=== PATIENT | male | born 1960 | race African-American/Black ===

== ENCOUNTER 2019-08-01 08:48 | Inpatient (IN) ==
--- NOTE | 2019-08-01 09:07 | EKG Report ---
Test Performed on : 08/01/2019 09:04:27 AM Test Reason : Stroke like sx Blood Pressure : / mmHG Vent. Rate : 069 BPM Atrial Rate : 069 BPM P-R Int : 142 ms QRS Dur : 082 ms QT Int : 384 ms P-R-T Axes : 036 024 057 degrees QTc Int : 411 ms Normal sinus rhythm. Nonspecific ST and T wave abnormality Abnormal ECG No previous ECGs available Unconfirmed Result
--- NOTE | 2019-08-01 09:17 | PROVIDER DOCUMENTATION ---
HPI-Neurological Disorder - General Chief Complaint: Stroke-Like Symptoms Stated Complaint: DIZZINESS,HEADACHE SLURRED SPEECH Time Seen by Provider: 08/01/19 09:02 Source: patient, family () Allergies/Adverse Reactions: Patient Allergies Allergy/AdvReac Type Severity Reaction Status Date / Time No Known Allergies Allergy Verified 08/01/19 09:46 Home Medications: Home Medication List Medication Instructions Recorded Confirmed Last Taken Type Insulin Humulin 70/30 [Humulin 30 units IM BID 08/01/19 08/01/19 Unknown History 70/30] Lisinopril/Hydrochlorothiazide 20 mg PO DAILY 08/01/19 08/01/19 Unknown History [Lisinopril-Hctz 20-12.5 mg Tab] Metformin HCl 1,000 mg PO BID 08/01/19 08/01/19 Unknown History Rosuvastatin Calcium [Crestor] 40 mg PO DAILY 08/01/19 08/01/19 Unknown History - History of Present Illness-Neuro Nature of Presenting Problem: Patient is a 59yo M who presents, accompanied by , with complaints of R sided weakness, LUE/BLE weakness, facial drooping, and slurred speech. reports patient was last seen normal approximately 12 hours ago. States yesterday afternoon, patient reported having a headache and he went to bed early. Reports some slurred speech last night, which worsened this morning. Denies personal/family hx of CVA, fever, flu-like sx, CP, or SOB. Reports hx of NIDDM, HTN, and HLD. Non-toxic in appearance. Headache Location: reports: other (global headache yesterday afternoon) Severity: reports: moderate Onset/Duration: reports: last night (2099) Timing: reports: still present Context: reports: impaired speech, facial droop Approximate time patient was last seen normal?: 21:00 Character of Altered Mental Status: reports: N/A Any recent trauma/injury?: reports: none Character of Deficits: reports: new weakness, impaired speech, decreased ability to walk New weakness or altered sensation location:: reports: LUE, LLE, right facial, general (diffuse) Cognitive Baseline: alert, oriented x3 Gait Baseline: uses a cane Associated Symptoms: reports: headache (yesterday), slurred speech, trouble walking, weakness. denies: dizziness, fever/chills, nausea, vomiting, vision changes Similar Symptoms Previously?: No Recently seen or treated by another doctor?: No Review of Systems - Adult - REVIEW OF SYSTEMS - ADULT Constitutional: denies: chills, fever Eyes: denies: decreased vision, blurred vision Ears, Nose, Mouth & Throat: reports: no symptoms reported Cardiovascular: denies: chest pain, palpitations Respiratory: denies: cough, shortness of breath Gastrointestinal: denies: nausea, vomiting Genitourinary: reports: no symptoms reported Musculoskeletal: reports: no symptoms reported Integumentary: reports: no symptoms reported Neurological: reports: see HPI, headache/migraines, numbness, slurred speech, other (dysarthria) Psychiatric: reports: no symptoms reported Endocrine: reports: no symptoms reported Past History - Adult - PAST MEDICAL HISTORY-ADULT Review of Records: reports: Nursing Assessment Review, Medications Reviewed Cardiovascular: reports: HTN, hyperlipidemia Endocrine/Immune: reports: Diabetes Diabetes controlled by:: PO Meds - IMMUNIZATION STATUS Childhood Immunizations: See Nurse Assessment Flu Vaccine: See Nurse Assessment Physical Exam- Neurological - Physical Exam-Neuro Initial Vital Signs Reviewed: Yes General Appearance: alert, mild distress. negative: lethargic, slow to respond, obtunded Eye Exam: bilateral eye: normal inspection, PERRL, EOMI HENMT: normocephalic/atraumatic, moist mucous membranes. negative: angioedema Head Injury: no evidence of injury Neck: non-tender, full range of motion, supple, normal inspection. negative: limited range of motion Respiratory: chest non-tender, lungs clear, normal breath sounds, no pleuratic chest pain, no respiratory distress, no accessory muscle use. negative: crackles, rhonchi, stridor, retractions Cardiovascular: regular rate, rhythm, no gallop Abdominal Exam: normal bowel sounds, non tender, soft. negative: tenderness Extremity: normal inspection, no pedal edema, other (decreased strength/movement LUE/BLE). 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 negative: gaze palsy Motor/Sensory: no sensory deficit, pronator drift (R), weak motor strength LUE, weak motor strength RLE, weak motor strength LLE Neurologic: facial droop, focal weakness, motor weakness, other (dysarthria) Integumentary: normal color, warm/dry. negative: cyanosis, jaundice, pallor Psych/Mental Status: normal mood/affect, normal thought content, normal thought process, oriented x 3 - Glascow Coma Scale Best Eye Response: (4) open spontaneously Best Verbal Response: (5) oriented Best Motor Response: (6) obeys commands Total Glascow Score: 15 Progress - PLAN OF CARE/RESULTS Progress/Plan/Lab Results: Vital Signs - 8 hr 08/01/19 08:54 Temperature 98.0 F Pulse Rate 65 Respiratory Rate 16 Blood Pressure 146/80 O2 Sat by Pulse Oximetry 99 Laboratory Results - last 24 hr 08/01/19 08/01/19 08/01/19 09:18 09:20 09:20 WBC RBC Hgb Hct MCV MCH MCHC RDW Std Deviation Plt Count MPV Neut % (Auto) Lymph % (Auto) Weber % (Auto) Eos % (Auto) Baso % (Auto) Neut # (Auto) Lymph # (Auto) Weber # (Auto) Eos # (Auto) Baso # (Auto) PT INR PTT (Actin FS) Sodium 138 Potassium 4.6 Chloride 99 Carbon Dioxide 25 Anion Gap 14 BUN 9 Creatinine 1.3 H Estimated GFR/1.73 m2 > 60 BUN/Creatinine Ratio 7 Glucose 240 H POC Glucose 227 H Estimat Average Glucose Hemoglobin A1c Calculated Osmolality 282 Calcium 9.7 Total Bilirubin 0.64 AST 12 ALT 15 Alkaline Phosphatase 87 Creatine Kinase Troponin T High Sens Total Protein 7.1 Albumin 4.6 Globulin 2.5 Albumin/Globulin Ratio 1.8 Triglycerides Cholesterol LDL Cholesterol Direct VLDL Cholesterol, Calc HDL Cholesterol Coronary Risk Interp Plasma Lactate 1.6 TSH Free T4 Plasma/Serum Ethyl Alc 08/01/19 08/01/19 08/01/19 09:20 09:20 09:20 WBC 4.95 RBC 4.98 Hgb 15.2 Hct 43.5 MCV 87.3 MCH 30.5 MCHC 34.9 RDW Std Deviation 13.9 Plt Count 137 MPV 11.5 H Neut % (Auto) 51.6 Lymph % (Auto) 34.3 Weber % (Auto) 13.7 H Eos % (Auto) 0.2 Baso % (Auto) 0.2 Neut # (Auto) 2.55 Lymph # (Auto) 1.70 Weber # (Auto) 0.68 H Eos # (Auto) 0.01 Baso # (Auto) 0.01 PT INR PTT (Actin FS) Sodium Potassium Chloride Carbon Dioxide Anion Gap BUN Creatinine Estimated GFR/1.73 m2 BUN/Creatinine Ratio Glucose POC Glucose Estimat Average Glucose Hemoglobin A1c Calculated Osmolality Calcium Total Bilirubin AST ALT Alkaline Phosphatase Creatine Kinase Troponin T High Sens 15 Total Protein Albumin Globulin Albumin/Globulin Ratio Triglycerides Cholesterol LDL Cholesterol Direct VLDL Cholesterol, Calc HDL Cholesterol Coronary Risk Interp Plasma Lactate TSH Free T4 Plasma/Serum Ethyl Alc 08/01/19 08/01/19 08/01/19 09:20 09:20 09:20 WBC RBC Hgb Hct MCV MCH MCHC RDW Std Deviation Plt Count MPV Neut % (Auto) Lymph % (Auto) Weber % (Auto) Eos % (Auto) Baso % (Auto) Neut # (Auto) Lymph # (Auto) Weber # (Auto) Eos # (Auto) Baso # (Auto) PT 13.7 INR 1.03 PTT (Actin FS) 26.4 Sodium Potassium Chloride Carbon Dioxide Anion Gap BUN Creatinine Estimated GFR/1.73 m2 BUN/Creatinine Ratio Glucose POC Glucose Estimat Average Glucose 197 Hemoglobin A1c 8.5 H Calculated Osmolality Calcium Total Bilirubin AST ALT Alkaline Phosphatase Creatine Kinase 95 Troponin T High Sens Total Protein Albumin Globulin Albumin/Globulin Ratio Triglycerides Cholesterol LDL Cholesterol Direct VLDL Cholesterol, Calc HDL Cholesterol Coronary Risk Interp Plasma Lactate TSH Free T4 Plasma/Serum Ethyl Alc 08/01/19 08/01/19 09:20 09:20 WBC RBC Hgb Hct MCV MCH MCHC RDW Std Deviation Plt Count MPV Neut % (Auto) Lymph % (Auto) Weber % (Auto) Eos % (Auto) Baso % (Auto) Neut # (Auto) Lymph # (Auto) Weber # (Auto) Eos # (Auto) Baso # (Auto) PT INR PTT (Actin FS) Sodium Potassium Chloride Carbon Dioxide Anion Gap BUN Creatinine Estimated GFR/1.73 m2 BUN/Creatinine Ratio Glucose POC Glucose Estimat Average Glucose Hemoglobin A1c Calculated Osmolality Calcium Total Bilirubin AST ALT Alkaline Phosphatase Creatine Kinase Troponin T High Sens Total Protein Albumin Globulin Albumin/Globulin Ratio Triglycerides 113 Cholesterol 209 H LDL Cholesterol Direct 151 VLDL Cholesterol, Calc 23 HDL Cholesterol 49 Coronary Risk Interp 4.00 Plasma Lactate TSH 1.40 Free T4 1.14 Plasma/Serum Ethyl Alc Orders Category Date Time Status Cardiac Monitoring DIRECTED Care 08/01/19 09:03 Active Complete NIH Stroke scale [QM] ORDERED Care 08/01/19 09:03 Active FSBS/Accucheck Result AC + HS Care 08/01/19 10:28 Active Finger Stick Blood Sugar (ED) DIRECTED Care 08/01/19 09:03 Active Neurological Check ORDERED Care 08/01/19 10:46 Active Nursing- MD Consult Request ROUTINE Care 08/01/19 10:25 Active Oxygen Therapy- ED Nursing DIRECTED Care 08/01/19 09:03 Active Saline Loc NOW Care 08/01/19 09:03 Active MD [Physician/Provider Consults] Routine Cons 08/01/19 10:24 Ordered CHEST-PORTABLE [RAD] Stat Exams 08/01/19 09:[address] HEAD W/O CONTRAST [CT] Stat Exams 08/01/19 09:04 Completed MRA BRAIN W/O CONTRAST [MRI] Stat Exams 08/01/19 10:33 Taken MRI BRAIN W/WO CONTRAST [MRI] Stat Exams 08/01/19 10:33 Ordered A1C HGB W EST AVG GLUCOSE [CHEM] Stat Lab 08/01/19 09:20 Completed ALCOHOL BLOOD Stat Lab 08/01/19 09:20 Completed CBC WITH ELECTRONIC DIFF [HEME] Stat Lab 08/01/19 09:20 Completed CK PROFILE [SP CHEM] Stat Lab 08/01/19 09:20 Completed COMPREHENSIVE METABOLIC PANEL [CHEM] Stat Lab 08/01/19 09:20 Completed FREE T4 Stat Lab 08/01/19 09:20 Completed LACTATE, PLASMA [CHEM] Stat Lab 08/01/19 09:20 Completed LIPID PROFILE W/DIR LDL [LIPIDS] Stat Lab 08/01/19 09:20 Completed PROTIME WITH INR [COAG] Stat Lab 08/01/19 09:20 Completed PTT [COAG] Stat Lab 08/01/19 09:20 Completed TROPONIN T HIGH SENSITIVITY Stat Lab 08/01/19 09:20 Completed TSH Stat Lab 08/01/19 09:20 Completed UA NIMS W/REFLEX CULT [URINALYSIS] Stat Lab 08/01/19 09:03 Uncollected URINE DRUG SCREEN Stat Lab 08/01/19 09:03 Uncollected 0.9% Sodium Chloride Inj [Ns] 1,000 ml Med 08/01/19 09:53 Discontinued IV 999 mls/hr 0.9% Sodium Chloride Inj [Ns] 1,000 ml Med 08/01/19 09:57 Discontinued IV 999 mls/hr 0.9% Sodium Chloride Inj [Ns] 1,000 ml Med 08/01/19 09:57 Discontinued IV 999 mls/hr Aspirin Med 08/01/19 09:55 Discontinued 325 mg PO NOW ONE Insulin Human Regular [Humulin R] Med 08/01/19 11:00 Active See Protocol SUBQ 0700,1100,1600,2100 Altered Mental Status Stat Oth 08/01/19 09:03 Ordered Carotid Ultrasound Stat Ther 08/01/19 10:25 Completed EKG [EKG] Stat Ther 08/01/19 09:03 Draft Echo Spec/Color Doppler Stat Ther 08/01/19 10:25 Completed Swallow Evaluation [OM.SPT] Routine Ther 08/01/19 10:27 Active 1017: Lab results, imaging results, plan of care, and need for admission discussed with patient and who agree with and verbalize understanding. 1025: Hospitalist TABITHA requested that I consult with Neurology to see if patient would be candidate for thrombectomy. Transfer Center paged. Result Diagrams: 08/01/19 09:20 08/01/19 09:20 - EKG 1 Time of EKG reading by physician:: 09:07 EKG Read and Signed by:: Wu Gan EKG Interpretation (*Must complete 3 of following elements*): Abnormal Rate: 69 Rhythm: NSR [place]: normal QRS: normal ST Wave: non-specific ST changes Prior EKG Comparison: no prior EKG - CT/MRI 1 CT Study: Head Impression: See EMR Report ([facility] - [address] [place] [address] [address], [place] [address] [facility] - [address] [place] [address] Department of Imaging Patient: SERENE GERMAN Date: 08/01/19MR#: [id number] : 1960ADM Status: REG ERAt#: [id number] Age/Sex: 59/MRoom/Bed: Loc: ED Ordering Physician: Vernell Tinoco Family Physician: None,PCP Reason for Procedure: Stroke like sx Signed EXAM: CT HEAD W/O CONTRAST INDICATION: Stroke like sx TECHNIQUE: This exam was performed using automated exposure control, adjustment of mA or kV according to patient size, and/or use of iterative reconstruction technique. COMPARISON: None. FINDINGS: There is patchy low attenuation in the left parietal lobe with disruption of the monet-white interface consistent with acute infarct. This is in the left MCA distribution. There are a couple of chronic appearing lacunar infarcts involving the right basal ganglion and right periventricular white matter. No other acute infarcts are identified as imaged with CT. There is no discrete intracranial mass, significant mass effect, or intracranial hemorrhage. The surrounding soft tissues and bony structures are essentially unremarkable. IMPRESSION: Acute left MCA distribution infarct as detailed above. The findings were discussed with Wu Gan MD at 08/01/2019 9:54 AM and was acknowledged. Electronically signed by Tonio Bazan 08/01/2019 9:55 AM 08/01/19 09 Interpreting Physician: Tonio Bazan MD Dictated Date/Time: 08/01/19 09 cc: Vernell Tinoco; None,PCP) - CONSULTS/PCP/HOSPITALIST Notification #1 *Consult/PCP/Hospitalist*: Dr. Tonio Bazan, Radiologist Time Discussed: 09:55 Reason/Comments: Acute L MCA infarct #2 Consult: Tiffanie Osullivan Time Discussed: 10:21 Reason/Comments: Acute CVA Consult Disposition: Will see in ED, Admit #3 Consult: CITLALLI Ann Transfer Center Time Discussed: 10:38 (I spoke with Justin at 1129, no intervention or transfer warranted at this time, as there is already infarct on CT) Reason/Comments: L MCA CVA Consult Disposition: other Departure - Departure Date of Disposition Decision: 08/01/19 Time of Disposition Decision: 10:17 DIAGNOSIS: Cerebral infarction involving left middle cerebral artery Hyperglycemia due to type 2 diabetes mellitus Qualifiers: Diabetes mellitus assisted insulin use: unspecified learning solutions specialist insulin use status Qualified Code(s): E11.65 - Type 2 diabetes mellitus with hyperglycemia Disposition: ADMITTED INPATIENT 09 Certified Medical Emergency: Emergent Condition: Stable Referrals and Follow-Ups: ASHLEY JOVEL CRNP [NON-STAFF PROVIDER] - - Critical Care Note This patient required my direct & personal management of CC.: No Attestation - Physician/ RAFY Attestation Patient care was provided by Advanced Practice Provider:: Yes Advanced Practice Provider:: Vernell Tinoco Advanced Practice Provider documentation review:: The Mid-level provider documentation, treatment plan and medical decision making was reviewed by the physician who agrees with all treatment and medical decision making by the MLP. The physician spent face to face time with patient:: Yes (Malik) Advanced Practice Provider documentation review:: Supervising physician onsite and consulted in the evaluation and care of this patient. The physician did have a face to face encounter with the patient. - NIH Stroke Scale NIH Type: Initial Evaluation Level of Consciousness: 0-Alert LOC Questions (ask month and age): 0-Answers Both Correctly LOC Commands (ask to open & close eyes;make a fist, let go): 0-Obeys Both Correctly Best Gaze (horizontal eye movement): 0-Normal Visual (use finger movement, counting or visual threat): 0-No Visual Loss Facial Palsy (show teeth or raise eyebrows & close eyes tght: 3-Complete Paralysis (R) Motor Function-left arm: 1-Drift Motor Function-right arm: 1-Drift Motor Function-left le-No Effort Against [place] Motor Function-right le-Some Effort Against [place] Limb Ataxia([id number], or heel to agudelo): 2-Present in two limbs Sensory(pin prick to face,arms,trunk,legs-compare side/side): 1-Mild to Moderate Decrease in Sensation Best Language(name item/read sentence.Ex-Down to Earth): 2-Severe Aphasia Dysarthria(Pt read words or say words Ex.Mama,Tip-Top,Thanks: 1-Mild-Mod Slurring Words Extinction and Inattention: 0-Normal NIH Total Score: 12 (14 by my testing) Modified [place] Score Criteria: 4-moderately severe disability Stroke tPA Guidelines - Inclusion Criteria for IV tPA 18 years old or older: Yes Ischemic stroke with measurable deficit: Yes Onset <3 hours ago *OR* 3-4.5 hours ago: No - Exclusion Criteria for IV tPA Evidence of intracranial hemorrhage on CT: No Presentation suggest SAH: No CT reveals defined area of hypodensity: Yes Evidence of AVM, neoplasm, aneurysm: No Seizure at stroke onset: No Active internal bleeding or acute trauma: No Platelet Count Less Than 100,000: No Heparin Within Last 48 HRS (PTT >Lab normal limits): No INR > 1.7 (warfarin use): No Use IIB/IIIA inhibitors within 24 hours: No Serious Head Trauma Within Last 3 Months: No Arterial Puncture Within Last 7 Days: No Lumbar Puncture Within Last 7 Days: No Repeated systolic Blood Pressure >185 or Diastolic >110: No - Additional Exclusion Criteria for IV tPA Currently on Coumadin: No Patient older than 80: No Baseline NIHSS score > 25: No - Relative Contraindications to IV tPA CT reveals extensive area of infarct (>1/3 MCA territory): Yes Minor or rapidly improving stroke symptoms: No Major Surgery or Serious Trauma In Previous 14 Days: No AMI within 3 months: No Gastrointestinal or Urinary Tract hemorrhage in Past 21 Days: No Post - AMI pericarditis: No Blood Glucose Less Than 50 mg/dl or Greater Than 400 mg/dl: No - Consultation tPA risks/benefits explained to:: family Candidate for:: NOT A CANDIDATE Reason not a candidate:: Too many exclusion criteria; symptom onset 12 hrs ago
[2019-08-01 09:49] LABS: BASO# 0.01 X1000 (0.0-0.2); BASO% 0.2 % (0.0-0.8); EOS# 0.01 X1000 (0.0-0.7); EOS% 0.2 % (0.0-10.0); HEMATOCRIT 43.5 % (42.0-52.0); HEMOGLOBIN 15.2 g/dL (14.0-18.0); LYMPH% 34.3 % (20.5-51.1); MCH 30.5 PG (27-31); MCHC 34.9 g/dL (33-37); MCV 87.3 FL (81-99); MONO# 0.68 X1000 (0.11-0.59); MONO% 13.7 % (1.7-9.3); MPV 11.5 FL (7.4-10.4); NEUT# 2.55 X1000 (1.4-6.5); NEUT% 51.6 % (42.2-75.2); PLT 137 X1000 (130-400); RBC 4.98 XMIL (4.7-6.1); RDW 13.9 % (11.5-14.5); WBC 4.95 X1000 (4.8-10.8)
[2019-08-01 09:52] LABS: INR 1.03; PROTIME 13.7 Seconds (11.0-16.0); PTT 26.4 Seconds (22.3-41.8)
[2019-08-01] MEDS ORDERED: NS 1,000 ML IV ONE ×3 (09:53→09:57)
[2019-08-01] MEDS ORDERED: ASPIRIN PO ONE (09:55)
--- NOTE | 2019-08-01 09:55 | Diag Imaging Result Doc PS360 ---
EXAM: CHEST-PORTABLE HISTORY: Stroke like sx TECHNIQUE: Single view COMPARISON: None. FINDINGS: The lungs are well expanded. The heart is not enlarged. The vessels are not distended. There are no infiltrates. No effusion identified. IMPRESSION: Negative exam. Electronically signed by Roly Dennison 08/01/2019 9:53 AM
--- NOTE | 2019-08-01 09:58 | Diag Imaging Result Doc PS360 ---
EXAM: CT HEAD W/O CONTRAST INDICATION: Stroke like sx TECHNIQUE: This exam was performed using automated exposure control, adjustment of mA or kV according to patient size, and/or use of iterative reconstruction technique. COMPARISON: None. FINDINGS: There is patchy low attenuation in the left parietal lobe with disruption of the monet-white interface consistent with acute infarct. This is in the left MCA distribution. There are a couple of chronic appearing lacunar infarcts involving the right basal ganglion and right periventricular white matter. No other acute infarcts are identified as imaged with CT. There is no discrete intracranial mass, significant mass effect, or intracranial hemorrhage. The surrounding soft tissues and bony structures are essentially unremarkable. IMPRESSION: Acute left MCA distribution infarct as detailed above. The findings were discussed with Wu Gan MD at 08/01/2019 9:54 AM and was acknowledged. Electronically signed by Tonio Bazan 08/01/2019 9:55 AM
[2019-08-01 10:04] LABS: AGAP 14; ALB/GLOB RATIO 1.8; ALBUMIN 4.6 g/dL (3.5-5.0); ALKALINE PHOSPHATASE 87 U/L (32-122); BUN 9 mg/dL (8-22); CALCIUM 9.7 mg/dL (8.8-10.2); CHLORIDE 99 mmol/L (98-107); COSMO 282; CREATININE 1.3 mg/dL (0.7-1.2); ESTIMATED GFR > 60; GLUCOSE 240 mg/dL (70-104); GOT 12 U/L (10-34); GPT 15 U/L (10-44); POTASSIUM 4.6 mmol/L (3.5-5.1); SODIUM 138 mmol/L (136-145); TCO2 25 mmol/L (25-35); TOTAL BILIRUBIN 0.64 mg/dL (0.20-1.00); TOTAL PROTEIN 7.1 g/dL (6.3-8.3)
[2019-08-01 10:46] LABS: HEMOGLOBIN A1C 8.5 % (4.8-6.0)
[2019-08-01 11:16] LABS: FREE T4 1.14 ng/dL (0.93-1.70); TSH 1.4 uIUmL (0.27-4.20)
--- NOTE | 2019-08-01 12:24 | Diag Imaging Result Doc PS360 ---
EXAM: MRA BRAIN W/O CONTRAST HISTORY: cva TECHNIQUE: MR angiography of the [place]. MIP images obtained. COMPARISON: None. FINDINGS: Normal flow in the basilar artery and each posterior cerebral artery. Normal flow in each distal internal carotid artery. Normal filling of the anterior cerebral arteries. Normal flow in the right middle cerebral artery. There is decreased flow in the distal left middle cerebral artery. No aneurysm. IMPRESSION: Abnormal exam with decreased flow in the distal left middle cerebral artery Electronically signed by Roly Dennison 08/01/2019 12:21 PM
[2019-08-01] MEDS ORDERED: TYLENOL PO PRN (12:27)
[2019-08-01] MEDS ORDERED: ZOFRAN IV PRN (12:27)
--- NOTE | 2019-08-01 12:42 | Diag Imaging Result Doc PS360 ---
EXAM: MRI BRAIN W/WO CONTRAST INDICATION: cva COMPARISON: CT head dated 08/01/2019. No prior MRI brain is available for comparison. FINDINGS: There is patchy restricted diffusion involving the left parietal lobe, posterior aspect of the left temporal lobe, and, to a lesser degree, the lateral left occipital lobe consistent with acute infarct that was also seen on the recent CT. This predominantly involves the left MCA distribution. However, there appears be some involvement of the left GOVERNMENT SERVICE EXECUTIVE distribution. There is a chronic lacunar infarct with surrounding gliosis associated with the right basal ganglion and right periventricular white matter. There is focal encephalomalacia involving the right cerebellar hemisphere. There is no discrete intracranial mass, mass effect, or intracranial hemorrhage. The surrounding soft tissues and bony structures are essentially unremarkable. IMPRESSION: Patchy acute infarct involving the left MCA distribution and, to a lesser degree, the left GOVERNMENT SERVICE EXECUTIVE distribution as described. Electronically signed by Tonio Bazan 08/01/2019 12:39 PM
[2019-08-01] MEDS: HUMULIN R SUBQ SCH ×3 (12:53→21:42)
--- NOTE | 2019-08-01 13:07 | HISTORY AND PHYSICAL ---
HISTORY OF PRESENT ILLNESS: This is a 59-year-old who does not have a primary care physician. states that yesterday he came in from work, he was working outside, I think working on the lawn with the science interpreter, mowing the grass and he seemed to have a more slurred speech, was hard to understand, just kind of seemed generally weak. This morning, though, she said his speech was worse. He stated that the right side his face feels weak and his right arm and hand feel weak and his left leg he had difficulty picking up off the bed. Denied chest pain or head pain. No fever or chills. Nothing else remarkable. PAST MEDICAL HISTORY: 1. Diabetes mellitus type 2. 2. Hyperlipidemia. 3. Hypertension. 4. Peripheral neuropathy in the lower extremities. PAST SURGICAL HISTORY: He had his nose repaired, I think, septal repair after it was broken, had an accident. SOCIAL HISTORY: Negative for smoking tobacco. He has apparently smoked crack cocaine but it has been a long time. He does drink beer and said he could drink about a case a day, but he said it has been a while since he has had beer, a week but may have been 3 or 4 days. Denies marijuana. Denies other illicit drugs. FAMILY HISTORY: Father of colon cancer. Mother had end-stage renal disease and stopped dialysis. REVIEW OF SYSTEMS: Constitutional: He does not report fever or chills. No change in visual or hearing acuity that he reports. Respiratory: No increased work of breathing or dyspnea. Cardiovascular: No chest pain or tachy palpitations. Gastrointestinal and Genitourinary: No complaints. Musculoskeletal and Neurologic: As above. Just weakness in his left leg, his right arm, right facial muscles. Hematological and endocrinological: Do not have any significant history. PHYSICAL EXAMINATION: GENERAL: In the emergency room, he is awake and alert. I can understand him. His speech is clear. VITAL SIGNS: Temperature 98 degrees, pulse 65, respirations 16, blood pressure 146/80. HEENT: His pupils are equal and reactive. Conjunctivae pink. No sign of thyromegaly. NECK: Supple. No cervical adenopathy or supraclavicular adenopathy. LUNGS: Clear anterolateral. No wheezing. CARDIOVASCULAR: Regular rhythm and rate. PMI nondisplaced. Carotid, radial, femoral pulses 2+ and symmetrical. No pedal edema. SKIN: Warm and dry. Oral nasal and mucosa. No sign of rash. His tongue was midline. NEUROLOGIC: Cranial nerves 2-12 intact. Motor strength: He is weak in his right hand. He can lift his right arm. Right facial muscles subjectively weak. I do not see a whole lot of asymmetry on exam. His left leg he has trouble lifting it off the bed. LABORATORY DATA: White count 4950, hematocrit 43, platelet count 137,000. Sodium 138, potassium 4.6, chloride 99, BUN 9, creatinine 1.3. Blood sugar was 240. Hemoglobin A1c was 8.5, calcium 9.7. AST is 12, ALT is 15, alkaline phosphatase is 87. Troponin was 15. CK was 95. Albumin 4.6. Total cholesterol 209, LDL was 151. TSH is 1.4, T4 is 1.14. ProTime is 13.7, INR 1.03, PTT is 26. IMAGIN. Chest x-ray negative. No sign of infiltrates. Lungs are well expanded. Heart was not enlarged. Vessels were not distended. 2. Head CT without contrast. Acute left MCA distribution infarct. There is a patchy low- attenuation left parietal lobe with disruption of the monet-white interface consistent with acute infarction, and there is left MCA distribution. There are a couple chronic-appearing lacunar infarcts involving the right basal ganglion and right periventricular white matter. No other acute infarcts noted. 3. MRA of the brain. Abnormal exam with decreased flow in the distal left middle cerebral artery. ASSESSMENT AND PLAN: 1. Left middle cerebral artery infarct but he also has left leg weakness with some signs of lacunar infarcts on the right. We will get an echocardiogram with Doppler, make sure he does not have mural thrombus. Put him on a monitor to monitor whether he goes in atrial fibrillation. We also get carotid ultrasound, even though we have done an MRA, just to look at the plaque and see if there is any significant carotid obstruction. His home medicines, his was not sure if he was taking them, but he is on lisinopril hydrochlorothiazide 01/19.5. We are going to allow for some elevated blood pressure just because of recent cerebrovascular accident, so we are going to hold that for now. 2. Diabetes mellitus type 2. Sugars look like they have been under reasonable control. Put him on a pattern sugar. He was getting Humulin 70/30, 30 units twice a day because we are not sure if he is eating or swallowing. We will cut that down to 15 units and he will get that twice a day just for basal therapy. His sugar was above 200. We will hold the metformin for now. 3. He is on Crestor 40 mg every day. I am not sure if he is taking it, but we will continue that, and we will put him on aspirin therapy, we will put him on 325 mg p.o. daily, 1 dose now. We will get Speech and Physical Therapy to evaluate and help treat. We will give him some normal saline and we will run it at 85 mL an hour. We will check B12 and folate. We have already checked his thyroid, and we will repeat electrolytes tomorrow including a magnesium and we will ask Neurology to evaluate as well. cc: Doe Valero MD
--- NOTE | 2019-08-01 13:22 | ECHO REPORT ---
ORDER DATE: 08/01/2019 INDICATIONS: CVA, hypertension, and hyperlipidemia. FINDINGS: 1. Right atrium appears normal in size. 2. Mild tricuspid regurgitation. RV systolic pressure 26. 3. Normal RV size and systolic function. 4. No significant pulmonic insufficiency. 5. Normal left atrial size with a volume index of 26. 6. No mitral valve prolapse. Mild mitral regurgitation. No mitral stenosis. 7. Normal LV size, end-diastolic dimension of 4.2 cm. Normal wall thicknesses with a posterior and interventricular septal wall thickness of 0.9 and 1.1 cm respectively. Normal LV systolic function. Estimated EF is 60% with normal wall motion. Normal diastolic function. 8. Aortic valve opens well. No evidence of stenosis or insufficiency. 9. Aorta appears normal visualized segments. 10. No pericardial effusion seen. 11. Normal IVC size. cc: MD Rosy Cuba CRNP
--- NOTE | 2019-08-01 14:39 | NEUROLOGY CONSULTATION ---
DATE: 08/01/2019 Mr. Carmen is 59 years old and there is evidence of stroke. History from the patient is that he was doing yard work yesterday and he fell. He noticed left leg weakness. He had to have some help to get up. He did some more work and then noticed slurred speech. He believes he noticed right-sided weakness later in the day. When he got up this morning, speech was more slurred and he had trouble at times understanding what was said to him. He noticed he could not see well to the right. He noticed right-sided weakness and gait difficulty were worse. He had headache. He did not have trouble chewing or swallowing. There was never unconsciousness or altered awareness. He presented to the hospital and now is admitted. Brain MRI shows patchy areas of restricted diffusion consistent with acute ischemic infarction in the left hemisphere. There is evidence of old right basal ganglia area infarction. Brain MRA showed expected reduced distal left middle cerebral flow. Echocardiogram shows no source of embolus. He has been afebrile. Blood pressure was 140s/80s. Past history is remarkable for diabetes mellitus, hypertension. He does not smoke cigarettes. He thinks he has taken medicine for cholesterol in the past. He reports he had not taken any of his medicines in a few weeks or longer. He denies ethanol abuse. PHYSICAL EXAMINATION: On exam, Mr. Carmen is awake, alert, attentive. Speech is dysarthric but can be understood. In addition, there is significant expressive dysphasia. He had trouble following written commands and did better with spoken commands. He had slight difficulty with right/left distinction. I could not find other definite receptive dysphasia. Memory is good. Head and neck are unremarkable. He has right hemianopia tested monocularly and binocularly by confrontational finger counting. I believe that visual acuity is not good in the left eye but I did not test his visual acuity carefully. Facial motility is diminished on the right in an upper motor neuron pattern. Gag is intact. Tongue consistently protrudes toward the right. He reports equal sensation on brief testing over the left and right face. Shoulder shrug is diminished on the right. He has good power now in left arm. Strength grades 4+/5 at the right wrist extensor and deltoid. There is right pronator drift, somewhat difficult to appreciate due to monitor on the right index finger. He did better with left [id number] than with the right. He did rapid alternating movements much better with the left hand than the right. Tone is increased in the right arm. In the legs, there is weakness bilaterally. Strength grades 3/5 at the right iliopsoas, 4/5 at the left iliopsoas, 4/5 at the anterior tibialis bilaterally, 4+/5 in the gastrocnemius bilaterally. Tone seems a little bit increased in the right leg compared to the left. He reports diminished pinprick appreciation in a stocking pattern bilaterally, similar on the left and right. Proprioception is good at the second finger PIP joint bilaterally. His responses on proprioception were inconsistent at the great toe MTP joint bilaterally. Plantar response is silent bilaterally. Reflexes are absent at the ankles and trace at the knees, 1+ symmetrically at the wrists. I did not test his gait. IMPRESSION: 1. Right hemianopia, dysphasia and dysarthria, right hemiparesis with relatively pure motor deficit. By report, this was abrupt onset within the last 24 hours, consistent with the imaging findings of acute infarction in the left hemisphere. Interestingly, he reports he is left handed for some things and right handed for some things, but I believe we see clear evidence of dominant left hemisphere. He has risk factors for cerebrovascular ischemic problems including hypertension, dyslipidemia, diabetes mellitus, and he has not been taking his medicines recently. 2. There is left leg weakness with uncertain explanation. This may be old and related to the right basal ganglia infarction demonstrated on MRI. In that case, I may have misunderstood his history that this is a recent problem. Alternatively, he might have acute nondominant right hemisphere infarction to explain the recent onset left leg weakness and this may be not be showing up on MRI. That scenario seems much less likely. He could have left leg weakness related to radiculopathy and peripheral neuropathy and that also seems unlikely. 3. Evidence of infarction in each hemisphere raises question of cardioembolic event. Negative echocardiogram is reassuring. We might eventually need to consider LIANA. 4. There is evidence of peripheral neuropathy, presumed diabetic neuropathy. This somewhat confounds examination but does not globe changer recommendations. RECOMMENDATION: If not already ordered and completed, carotid ultrasound or CT angiogram of the neck would be reasonable. Would treat blood pressure very cautiously, hydrate aggressively, treat blood sugar and lipids aggressively, continue aspirin as he has resumed here. In light of his young age and apparent bilateral infarctions, I would add clopidogrel at least for short-term. I believe he will be a candidate for aggressive physical therapy. Thanks for asking Neurology to see Mr. Carmen. cc: MD ION Ferguson III
[2019-08-01 15:59] LABS: URINE SOURCE CLEAN CATCH
[2019-08-01 16:13] LABS: UR AMPHETAMINES QUAL NONE DETECTED (NONE DETECT); UR BARBITUATES QUAL NONE DETECTED (NONE DETECT); UR BENZODIAZEPIN QUAL NONE DETECTED (NONE DETECT); UR CANNABINOIDS QUAL NONE DETECTED (NONE DETECT); UR COCAINE QUAL NONE DETECTED (NONE DETECT); UR METHADONE QUAL NONE DETECTED (NONE DETECT); UR OPIATES QUAL NONE DETECTED (NONE DETECT); UR OXYCODONE QUAL NONE DETECTED (NONE DETECT); UR PCP QUAL NONE DETECTED (NONE DETECT)
[2019-08-01 16:33] LABS: BILIRUBIN URINE NEGATIVE (NEGATIVE); BLOOD URINE NEGATIVE (NEGATIVE); COLOR YELLOW; GLUCOSE URINE TRACE mg/dL (NEGATIVE); KETONE URINE TRACE mg/dL (NEGATIVE); LEUKOCYTES URINE NEGATIVE (NEGATIVE); NITRITE URINE NEGATIVE (NEGATIVE); PH URINE 6.5; PROTEIN URINE NEGATIVE (NEGATIVE); SP GRAVITY URINE 1.011; TURBIDITY URINE CLEAR (CLEAR); UROBILINOGEN URINE NORMAL (NORMAL)
[2019-08-01 16:34] LABS: UR EPITHELIAL CELLS <10 /HPF (<10); URINE BACTERIA NEGATIVE /HPF; URINE RBC <10 /HPF (<10); URINE WBC <10 /HPF (<10)
[2019-08-01] MEDS: NS 1,000 ML IV SCH ×2 (17:27→17:38)
[2019-08-01] MEDS: CRESTOR PO SCH (21:42)
[2019-08-01] MEDS: HUMULIN 70/30 SUBQ SCH (22:25)
[2019-08-02] MEDS: NS 1,000 ML IV SCH ×2 (05:47→16:30)
[2019-08-02] MEDS: HUMULIN R SUBQ SCH ×4 (06:00→19:59)
[2019-08-02 07:44] LABS: BASO# 0.01 X1000 (0.0-0.2); BASO% 0.2 % (0.0-0.8); EOS# 0.02 X1000 (0.0-0.7); EOS% 0.5 % (0.0-10.0); HEMATOCRIT 38.9 % (42.0-52.0); HEMOGLOBIN 13.3 g/dL (14.0-18.0); LYMPH# 1.33 X1000 (1.2-3.4); LYMPH% 30.9 % (20.5-51.1); MCHC 34.2 g/dL (33-37); MCV 87.8 FL (81-99); MONO# 0.44 X1000 (0.11-0.59); MONO% 10.2 % (1.7-9.3); MPV 11.6 FL (7.4-10.4); NEUT# 2.51 X1000 (1.4-6.5); NEUT% 58.2 % (42.2-75.2); PLT 122 X1000 (130-400); RBC 4.43 XMIL (4.7-6.1); RDW 13.4 % (11.5-14.5); WBC 4.31 X1000 (4.8-10.8)
[2019-08-02 08:01] LABS: AGAP 9; ALB/GLOB RATIO 1.5; ALBUMIN 3.9 g/dL (3.5-5.0); ALKALINE PHOSPHATASE 74 U/L (32-122); BUN 8 mg/dL (8-22); CALCIUM 8.6 mg/dL (8.8-10.2); CHLORIDE 102 mmol/L (98-107); COSMO 279; ESTIMATED GFR > 60; GLUCOSE 218 mg/dL (70-104); GOT 15 U/L (10-34); GPT 12 U/L (10-44); MAGNESIUM 1.8 mg/dL (1.5-2.7); POTASSIUM 4.1 mmol/L (3.5-5.1); SODIUM 137 mmol/L (136-145); TCO2 26 mmol/L (25-35); TOTAL BILIRUBIN 0.45 mg/dL (0.20-1.00); TOTAL PROTEIN 6.5 g/dL (6.3-8.3)
[2019-08-02] MEDS: HUMULIN 70/30 SUBQ SCH ×2 (08:20→19:59)
[2019-08-02] MEDS ORDERED: ASPIRIN PO SCH ×2 (09:00)
--- NOTE | 2019-08-02 09:38 | PROGRESS NOTE ---
DATE: 08/02/2019 SUBJECTIVE: Mr. Mcelroy feels better. His face and his right arm and his left leg feel better. He is saying he wanted to go home. He remains afebrile. He is eating good and swallowing good. OBJECTIVE: Vital Signs: Temperature 98.8 degrees, pulse 59, respirations 16, blood pressure 128/74. HEENT: Pupils are equal and round. Lungs: Clear in all lung daley. Cardiovascular: Regular rhythm and rate without murmur or S3. Abdomen: Soft. Skin: Warm and dry. Urine output was 900 mL. ASSESSMENT AND PLAN: 1. Right hemiplegia, dysphagia and dysarthria. Right hemiparesis is relative pure motor deficit, onset within the last 24 hours consistent with imaging findings of acute infarction left hemisphere. He is left handed and right handed for some things. He has a dominant left hemisphere, so we will manage his risk factors. He wants to go home. Apparently clinically neurologically, he is improved. I have him on aspirin. 2. Left leg weakness, uncertain explanation. Could be related to right basal ganglia infarction demonstrated on MRI. At any rate, he reports that that is improved as well. Dr. Malone has evaluated. He said he might have an acute nondominant right hemisphere infarction explaining the recent onset of left leg weakness. This may not be shown on an MRI. 3. Question of embolic event. We do have an echocardiogram I am going to look at. 4. Diabetes mellitus type 2. Follow pattern sugars. 5. Peripheral neuropathy secondary to diabetes. REVIEW OF HIS ORDERS: He is already on Crestor. Getting aspirin 325 mg p.o. daily. Speech therapy and physical therapy to evaluate. I want to make sure we get an echocardiogram. cc: Doe Valero MD
--- NOTE | 2019-08-02 12:52 | Carotid Study ---
DATE: 08/01/2019 REQUESTING PROVIDER: TABITHA Torres. CLEARANCE CENTER MANAGER: Rosendo. INDICATION: Acute CVA. EQUIPMENT: [employer] Vivid E9 ultrasound system with a 9 L-D transducer. FINDINGS: Complete diagram of ultrasound image can be seen scanned into patient's medical record. The peak systolic velocity noted on the right side in the distal internal carotid artery and is noted to be 49. The peak systolic velocity on the left side is noted in the mid internal carotid artery and is noted to be 40. The calculated internal to common ratio on the right is 0.64, left 0.34. Calculated stenosis on the right is 0 to 39 percent, left 0 to 39 percent. Both vertebral arteries were antegrade flow. There appears to be atherosclerosis, but at this time does not produce a hemodynamically significant flow-limiting stenosis. INTERPRETATION: By strict velocity criteria, no hemodynamically significant flow-limiting stenosis. cc: MD Rosy Camp CRNP
--- NOTE | 2019-08-02 16:19 | DISCHARGE SUMMARY ---
ADMISSION DATE: 08/01/2019 DISCHARGE DATE: 08/02/2019 He has no primary care physician. A 59-year-old, does not have a primary care physician, stated that yesterday he came in from working outside. He was working outside on his lawn and using a auto mechanic and his thought maybe he had just overdone. He seemed to have a little bit of a slurred speech and just generally weak and went to bed early. In the morning, though she said his speech was worse. Right side of his face seemed to be weak and his right arm. His left leg was weak as well. PAST MEDICAL HISTORY: 1. Diabetes mellitus type 2. 2. Hyperlipidemia. 3. Hypertension. 4. Peripheral neuropathy in lower extremities. He denied any chest pain or tachy palpitation or fever, chills or head trauma or neck discomfort. Rest review of systems. HEENT: No change in visual or hearing acuity. Respiratory: No increased work of breathing or dyspnea. Cardiovascular: No chest pain or tachy palpitation. GI and : No change in bowels or urinary frequency or gross hematuria. Musculoskeletal and neurologic: As noted above Endocrinologic/hemologic: No significant history. PHYSICAL EXAMINATION: In the emergency room, seemed to have some right facial asymmetry. Right hand and arm were weak. His left leg could not lift off the bed. He was awake, alert, oriented x3. Could swallow well. His speech had cleared according to his , was not as slurred. Head CT without contrast showed acute middle cerebral artery distribution on the left and patchy low attenuation left parietal lobe with disruption of monet white interface consistent with acute infarction. There is left middle cerebral artery distribution. A couple of chronic appearing lacunar infarcts involving the right basilar ganglion and right periventricular white matter. MRA of the brain was done and he had decreased flow in the distal left middle cerebral artery. We did an echocardiogram and that was done on 07/31. Left ventricular size and end-diastolic dimension 4.2 cm. Normal left ventricular thickness and ejection fraction of 60%. No mural thrombus seen. No valvular dysfunction. There is mild mitral regurgitation, aortic valve opened well. No pericardial disease appreciated. Carotid Doppler, no hemodynamically significant flow lesions in either carotid vessel. Brain MRI: Patchy acute infarct involving the middle cerebral artery distribution with lesser degree the left posterior cerebral artery distribution. The patient's symptoms had resolved and wanted to go home the following morning. Last several blood pressures 129/77, 128/74, 159/81. I had put him on aspirin. Dr. Malone had evaluated and he felt the right hemiplegia, dysphagia and dysarthria, right hemiparesis with relatively pure motor deficit, abrupt onset within the last 24 hours, consistent with imaging findings of acute infarction in the left hemisphere. He reports that he is left-handed and right-handed for some things but clear evidence of left hemisphere dominance and he has risk factors for cardiovascular ischemia including hypertension, dyslipidemia, and diabetes. Plan is to put him on aspirin and Plavix. Left leg weakness of uncertain explanation and it could be related to his old right basilar ganglia infarction demonstrated on MRI. He could have a non dominant hemisphere of the right hemisphere infarction to explain the left leg weakness and this may not be showing up on MRI. He has some evidence of peripheral neuropathy related to his diabetes. So, plan to discharge him home. DISCHARGE ORDERS: He will be on aspirin 325 mg a day, Crestor 40 mg a day and Plavix 75 mg daily. Continue his insulin. He was taking 70/30 30 units twice a day, lisinopril hydrochlorothiazide he was taking once a day and metformin 1000 mg twice a day. He is on Crestor as I mentioned 40 mg daily. Encouraged to get a primary care physician for follow up. cc: Doe Valero MD
--- NOTE | 2019-08-02 16:24 | NEUROLOGY PROGRESS NOTE ---
DATE: 08/02/2019 Mr. Carmen reports significant improvement, but he believes he is still not quite back to baseline. Carotid ultrasound showed some plaque, but no hemodynamically significant stenosis bilaterally. Systolic blood pressures have been recorded 120s-140s over the last 24 hours. There was 1 heart rate recording at 40. Otherwise, heart rate has been high 50s and 60s. On exam, he is awake, alert, attentive. Speech is much less dysarthric than yesterday. He still has some trouble with right/left distinction and he occasionally has trouble finding a word, but his dysphasia is also significantly improved compared to yesterday. He continues to have consistent right hemianopia. He has had remarkable recovery of power in the limbs. Right hemiparesis is minimal now. He reports symmetric pinprick appreciation over the hands. IMPRESSION: 1. Recent acute dominant left hemisphere infarction with dysphasia, dysarthria, right hemianopia, relatively pure motor right hemiparesis. All of these deficits, except the hemianopia, are much, much improved today. There is imaging evidence of acute left hemisphere infarction consistent with these deficits. Risk factors as outlined. 2. He presented with left leg weakness which is much improved today. There is evidence of old right basal ganglia area infarction, but his history was that the left leg weakness was recent and may have preceded the right limb weakness by a very short time. We did not demonstrate definite acute right hemisphere infarction with brain imaging this admission. 3. Possibility of bilateral infarction, worrisome for cardiac source of embolus but echocardiogram negative. 4. Bradycardia. In light of his young age and good recovery, I think it would be reasonable to suggest he have dual antiplatelet management with aspirin and clopidogrel short term. We discussed potential bleeding and bruising problems and he understands to report if any of that is prominent. I would stop clopidogrel and continue aspirin monotherapy after about 3 months if no further events. I encouraged him to be aggressive with management of his risk factors and to keep followup with his primary clinic. I will be glad to see him as an outpatient, if needed. Thanks for asking Neurology to see Mr. Carmen. cc: MD ION Ferguson III
[2019-08-02] MEDS ORDERED: INSULIN PEN NEEDLES ONE (19:50)
[2019-08-02] MEDS: CRESTOR PO SCH (19:54)
[2019-08-02 20:11] VITALS: BP 124/52
== END 2019-08-02 20:44 | disposition home or self-care (01) | DRG 65 ==
LOC: ED 08:48 → 3N 13:44
PROVIDERS: ATTEND Emergency Medicine